=== PATIENT | male | born 1940 | race Caucasian/White ===

== ENCOUNTER 2017-03-07 14:21 | Observation (INO) | payer OTHER ==
[~2017-03-07] VITALS: Ht 165.1 cm; Wt 93.1 kg
[2017-03-07] MEDS ORDERED: LIDOCAINE/EPINEPH/TETRACAINE 1 EA SYR EXT STA ×2 (14:30)
[2017-03-07 15:19] LABS: URINE APPEARANCE CLEAR (CLEAR); URINE BILIRUBIN NEG (NEG); URINE COLOR DK YELLOW; URINE EPITHELIAL CELL AUTO 20-30 /lpf (0-5); URINE NITRITE NEG (NEG); URINE SPECIFIC GRAVITY 1.022 (1.000-1.030); UROBILINOGEN NEG (NEG)
[2017-03-07 15:36] LABS: MANUAL MICROSCOPIC REQUIRED? NO; REVIEW REQ? YES
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
[2017-03-07 16:05] LABS: URINE PATH CASTS 1-5 GRANULAR CASTS /lpf (0)
[2017-03-07] MEDS ORDERED: SODIUM CHLORIDE 0.9% 1000ML 1,000 ML IV STA ×2 (16:34→18:50)
[2017-03-07] MEDS ORDERED: ONDANSETRON INJ 2 MG/ML 2 ML VIAL IV STA (16:34)
[2017-03-07] MEDS ORDERED: OPTIRAY 320 IV PRN (16:45)
[2017-03-07] MEDS ORDERED: LSN/10125 PO (17:07)
[2017-03-07] MEDS ORDERED: SIMV10TA2 PO (17:07)
[2017-03-07 17:08] LABS: MEAN CORPUSCULAR HGB CONC 34.7 g/dl (32-36); MEAN PLATELET VOLUME 9.6 fL (7.4-10.4); PLATELET COUNT 263 K/uL (130-400)
[2017-03-07 17:16] LABS: PARTIAL THROMBOPLASTIN RATIO 0.9; PROTHROMBIN TIME (PATIENT) 10.7 SECONDS (9.0-12.0)
[2017-03-07 17:29] LABS: ALT/SGPT 37 U/L (12-78); AST/SGOT 34 U/L (15-37); BLOOD UREA NITROGEN 22 mg/dl (7-18); BUN/CREATININE RATIO 19.7 (10-20); CALCIUM 8.6 mg/dl (8.5-10.1); CARBON DIOXIDE 22 mmol/L (21-32); CHLORIDE 104 mmol/L (98-107); GLUCOSE 175 mg/dl (70-99); POTASSIUM 4.1 mmol/L (3.5-5.1); SODIUM 140 mmol/L (136-145)
[2017-03-07 17:34] LABS: ALKALINE PHOSPHATASE 72 U/L (45-117); CKMB/CK RATIO 1.8 (0-3.0); COMPLETE YES; HEMATOCRIT 45.5 % (42-52); LYMPH ABS # 2.41 K/uL (1.2-3.4); LYMPHOCYTE % 12.2 %; MEAN CELL VOLUME 87.5 fL (80-100); MEAN CORPUSCULAR HEMOGLOBIN 30.4 pg (25-34); META ABS # 0.18 K/uL (0-0); METAMYELOCYTE % 0.9 %; NEUTROPHILS % 84.3 %; WHITE BLOOD COUNT 19.75 K/uL (4.8-10.8)
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
[2017-03-07] MEDS ORDERED: LIDOCAINE/EPINEPH/TETRACAINE 1 EA SYR ONE (20:16)
[2017-03-07] MEDS ORDERED: BACITRACIN OINT 15 GM TUBE ONE (20:58)
[2017-03-07] MEDS ORDERED: MAGNESIUM HYDROXIDE SUSP 30 ML UDC PO PRN (21:30)
[2017-03-07] MEDS ORDERED: ONDANSETRON INJ 2 MG/ML 2 ML VIAL IV PRN (21:30)
[2017-03-07] MEDS ORDERED: ACETAMINOPHEN 325 MG TAB PO PRN (21:30)
[2017-03-07] MEDS ORDERED: ALUMINUM/MAGNESIUM/SIMETH (MAALOX MAX) 30 ML UDC PO PRN (21:30)
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
[2017-03-07] MEDS ORDERED: OXYCODONE/ACETAMINOPHEN 10/325MG TAB PO PRN (22:00)
[2017-03-07] MEDS ORDERED: HYDROmorphone INJ 1 MG/ML SYR IV PRN (22:00)
[2017-03-07] MEDS ORDERED: POLYETHYLENE (MIRALAX) 17 GM PACK PO PRN (22:00)
[2017-03-07] MEDS ORDERED: IV FLUIDS COMPLETED PRN (22:30)
[2017-03-07 23:56] VITALS: BP 148/79; PULSE 97; TEMP 36.7; O2SAT 95
[2017-03-08] MEDS: SODIUM CHLORIDE 0.9% 1000ML 1,000 ML IV SCH ×2 (00:18→07:26)
[2017-03-08 01:41] VITALS: BP 148/79; PULSE 97; TEMP 36.7; O2SAT 93; Ht 165.1 cm; Wt 93.1 kg
[2017-03-08 07:35] LABS: HEMATOCRIT 37.1 % (42-52); MEAN CELL VOLUME 87.3 fL (80-100); MEAN CORPUSCULAR HEMOGLOBIN 30.6 pg (25-34); MEAN PLATELET VOLUME 9.6 fL (7.4-10.4); PLATELET COUNT 215 K/uL (130-400); RED BLOOD COUNT 4.25 M/uL (4.7-6.1); WHITE BLOOD COUNT 9.47 K/uL (4.8-10.8)
[2017-03-08 07:48] VITALS: BP 146/67; PULSE 93; TEMP 36.4; O2SAT 97
[2017-03-08 07:57] LABS: BUN/CREATININE RATIO 21.5 (10-20); CREATININE 0.74 mg/dl (0.60-1.40); MAGNESIUM 2.2 mg/dl (1.8-2.4)
[2017-03-08 08:00] VITALS: O2SAT 97
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
[2017-03-08] MEDS ORDERED: SCOPOLAMINE 1.5 MG TDSY TD ONE (14:30)
[2017-03-08 15:13] VITALS: BP 148/75; PULSE 101; TEMP 36.7; O2SAT 95
[2017-03-08 16:00] VITALS: O2SAT 95
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
[2017-03-08] MEDS ORDERED: LORAZEPAM 0.5 MG TAB PO PRN (18:30)
[2017-03-08] MEDS ORDERED: LORAZEPAM 2 MG/ML 1 ML VIAL IV PRN (18:30)
[2017-03-08] MEDS ORDERED: HydrALAZINE HCL 20 MG/ML VIAL IV PRN (18:30)
[2017-03-08] MEDS ORDERED: LORAZEPAM INJ 0.5 MG in SYRINGE 0.75 ML IV PRN (19:00)
[2017-03-08] MEDS ORDERED: SIMVASTATIN 10 MG TAB PO SCH (21:00)
[2017-03-08 23:40] VITALS: BP 123/61; PULSE 99; TEMP 36.7; O2SAT 100
[2017-03-09 07:23] VITALS: BP 150/77; PULSE 87; TEMP 36.8; O2SAT 97
[2017-03-09 08:00] VITALS: O2SAT 97
[2017-03-09] MEDS ORDERED: REMOVE SCOPOLAMINE (08:10)
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
[2017-03-09 11:40] VITALS: BP 150/77; PULSE 87; TEMP 36.8; O2SAT 97
[2017-03-09] MEDS ORDERED: SCOP1.5D2 TD (11:44)
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
== END 2017-03-09 12:45 | disposition home or self-care (01) ==
LOC: EDBD 14:21 → C.EDC 14:22 → C.MS4W 21:28 → ENRESERV 22:31
PROVIDERS: ADMIT Internal Medicine; ATTEND Internal Medicine
DX: S09.90XA Unspecified injury of head, initial encounter (principal); S80.02XA Contusion of left knee, initial encounter; R42 Dizziness and giddiness; S06.0X0A Concussion without loss of consciousness, initial encounter; S40.812A Abrasion of left upper arm, initial encounter; V28.4XXA Motorcycle driver injured in noncollision transport accident in traffic accident, initial encounter; E86.0 Dehydration; R73.9 Hyperglycemia, unspecified; I10 Essential (primary) hypertension; D72.829 Elevated white blood cell count, unspecified